=== PATIENT | female | born 1975 | race Caucasian/White ===

== ENCOUNTER 2020-01-13 01:37 | Emergency (ER) | payer BC ==
[~2020-01-13] VITALS: Ht 162.6 cm; Wt 77.1 kg
== END 2020-01-13 04:47 | disposition home or self-care (01) ==
LOC: ER 01:37
DX: R00.2 Palpitations (principal)

== ENCOUNTER 2024-02-20 07:12 | Outpatient (CLI) | payer OTHER | END 2024-02-20 14:55 | disposition home or self-care (01) | LOC: LAB 07:12 → EKG 07:12 | DX: N97.9 Female infertility, unspecified (principal) ==

== ENCOUNTER 2024-11-16 11:15 | Inpatient (IN) | payer OTHER ==
[~2024-11-16] VITALS: Ht 167.6 cm; Wt 2.7 kg
[~2024-11-16 11:15] MED LIST: ENDOMETRIN100 MG; PRENA1 TRUE CO1 EACH
[2024-11-16 13:14] LABS: HEMATOCRIT 37.2 % (36.0-45.00); HEMOGLOBIN 12.8 g/dL (12.0-15.00); MEAN CELL VOLUME 88.2 fL (80.00-100.00); MEAN CORPUSCULAR HEMOGLOBIN 30.3 pg (27.00-32.0); MEAN CORPUSCULAR HGB CONC 34.3 g/dl (32.0-36.0); PLATELET COUNT 210 K/uL (150-450); RED BLOOD COUNT 4.22 M/uL (4.00-6.00); RED CELL DISTRIBUTION WIDTH 14.6 % (11.5-14.5)
[2024-11-16] MEDS ORDERED: ASA81 MG PO (13:32)
[2024-11-16 13:39] LABS: INR < 0.93; PARTIAL THROMBOPLASTIN TIME 27.3 SECONDS (22.0-34.0); PROTHROMBIN TIME 10.2 SECONDS (9.0-11.5)
[2024-11-16 15:11] LABS: ALBUMIN 2.9 gm/dL (3.4-5.0); BILIRUBIN TOTAL 0.8 mg/dL (0.3-1.2); CALCIUM 9.3 mg/dL (8.5-10.1); CREATININE SERUM 0.56 mg/dL (0.55-1.02); GFR 114.59; GLOBULINA 3.9 G/DL (2.4-3.5); POTASSIUM 4.34 mEq/L (3.5-5.1); TOTAL PROTEIN 6.8 gm/dL (6.4-8.2)
[2024-11-25 09:03] VITALS: BP 128/69
[2024-11-25] MEDS ORDERED: ERYTHROMYCIN BASE OPHT 1GM EACH TUBE OP ONE (14:01)
[2024-11-25] MEDS ORDERED: OXYTOCIN 10 UNITS/ML VIAL ONE ×3 (14:01→17:32)
[2024-11-25] MEDS ORDERED: MORPHINE SULFATE 4 MG/ML CARTRIDGE IV PRN (15:30)
[2024-11-25] MEDS ORDERED: RINGERS SOLUTION,LACTATED 1,000 ML IV SCH (15:45)
[2024-11-25] MEDS ORDERED: OXYTOCIN 1,000 ML IV ONE (15:45)
[2024-11-25] MEDS ORDERED: SIMETHICONE 125 MG CAPSULE PO SCH (17:00)
[2024-11-25] MEDS ORDERED: GABAPENTIN 300 MG CAPSULE PO SCH (17:00)
[2024-11-25] MEDS ORDERED: MORPHINE SULFATE 4 MG/ML VIAL IV ONE ×2 (17:25→19:05)
[2024-11-25] MEDS ORDERED: KETOROLAC TROMETHAMINE 30 MG VIAL ONE (17:39)
[2024-11-25] MEDS ORDERED: ONDANSETRON HCL 2 MG/ML VIAL IV SCH (18:00)
[2024-11-25] MEDS ORDERED: ACETAMINOPHEN 500 MG GEL..CAP PO SCH (18:00)
[2024-11-25] MEDS ORDERED: KETOROLAC TROMETHAMINE 30 MG VIAL IV SCH (18:00)
[2024-11-25 22:02] VITALS: BP 133/78
[2024-11-26] VITALS: BP 133/85
[2024-11-26 06:43] LABS: HEMATOCRIT 34.5 % (36.0-45.00); HEMOGLOBIN 12.1 g/dL (12.0-15.00); MEAN CELL VOLUME 88.4 fL (80.00-100.00); MEAN CORPUSCULAR HEMOGLOBIN 31.1 pg (27.00-32.0); MEAN CORPUSCULAR HGB CONC 35.2 g/dl (32.0-36.0); PLATELET COUNT 181 K/uL (150-450); RED CELL DISTRIBUTION WIDTH 15.1 % (11.5-14.5)
[2024-11-26 08:00] VITALS: BP 131/74
[2024-11-26] MEDS ORDERED: KETOROLAC TROMETHAMINE 10 MG TABLET PO SCH (08:00)
[2024-11-26] MEDS ORDERED: OxyCODONE HCL 5 MG TABLET (ROXICODONE) PO PRN (08:00)
[2024-11-26] MEDS ORDERED: DOCUSATE SODIUM 100MG CAP PO SCH (09:00)
[2024-11-26] MEDS ORDERED: CLINDAMYCIN PHOSPHATE 150 MG/ML (900mg) IV ONE (11:45)
[2024-11-26 16:00] VITALS: BP 128/77
[2024-11-27 00:20] VITALS: BP 121/74
[2024-11-27 08:00] VITALS: BP 130/80
[2024-11-27 14:57] VITALS: BP 139/80
[2024-11-28 00:14] VITALS: BP 134/86
[2024-11-28 08:21] VITALS: BP 121/64
[2024-11-28] MEDS ORDERED: KETO10TA2 PO (10:40)
[2024-11-28] MEDS ORDERED: PERCOCET 5-3251 EACH PO (10:40)
== END 2024-11-28 18:03 | disposition home or self-care (01) | DRG 788 ==
LOC: O/R 11-25 07:40 → OB/GYN 11-25 11:15
PROVIDERS: ADMIT Obstetrics & Gynecology; ATTEND Obstetrics & Gynecology
PROC: 4A1HXCZ Monitoring of Products of Conception, Cardiac Rate, External Approach (ICD-10-PCS; 2024-11-25)
PROC: 10D00Z1 Extraction of Products of Conception, Low, Open Approach (ICD-10-PCS; principal; 2024-11-25 11:15)
DX: O32.1XX0 Maternal care for breech presentation, not applicable or unspecified (principal); Z3A.39 39 weeks gestation of pregnancy; Z37.0 Single live birth